=== PATIENT | female | born 1945 | race Caucasian/White ===

== ENCOUNTER → 2018-10-19 06:42 | Day surgery (SDC) | payer MEDICARE, BC ==
[~2018-10-19 06:42] MED LIST: Atenolol TAB* 25 MG ONE; Buffered Lidocaine 1% SYRIN* 1 ML/SYRINGE INTRADERM ONE; Lactated Ringers 1000 ML Bag* 1,000 ML IV SCH; Lidocaine 2% PF * 5 ML VIAL ONE; Naloxone* 0.4 MG/ML 1 ML VIAL IV PRN; Propofol* 10 MG/ML 20 ML BTL ONE; Sodium Citrate/Citric Acid* 15 ML UDC ONE; Sodium Citrate/Citric Acid* 15 ML UDC PO ONE; fentaNYL* 50 MCG/ML 2 ML VIAL (100 MCG VIAL) ONE
[2018-10-19 09:24] VITALS: BP 129/69
--- NOTE | 2018-10-19 13:06 | TEE ---
*[facility]* [place] [address] Fax #: [phone] Transthoracic Echocardiogram Patient: Cara Javed Height: 65 in / A 165.1 cm : 1945 Weight: 217.5 lb / Study Date: 10/19/2018 98.9 kg Age: 73 BP: 135 / 60 Gender: F BMI/BSA: 36.3 kg/m^2 HR: 69 bpm / 2.05 m^2 *Racing Car Driver: * Bessie Velazquez [facility] *Referring Physician: * Julio Valdez *Reading Physician: Julio Srivastava MD Indications: Unspecified atrial fibrillation (I48.91). History: Risk factors: Hypertension. Diabetes mellitus. Obese. Dyslipidemia. Conclusions Summary: 1. Left ventricle: Left ventricular geometry shows evidence of concentric hypertrophy. Systolic function is normal. The estimated ejection fraction is 55-60%, by visual assessment. 2. Right ventricle: The cavity size is mildly dilated. 3. Left atrium: The atrium is mildly dilated. The appendage is not well visualized. Emptying velocity is mildly reduced. Cannot exclude a thrombus in the appendage. There is spontaneous echo contrast ("smoke"). 4. Right atrium: The atrium is mildly dilated. 5. Atrial septum: No defect or patent foramen ovale is identified. 6. Mitral valve: There is mild regurgitation, with multiple jets. 7. Aortic valve: The findings are consistent with moderate stenosis. 8. Tricuspid valve: There is mild-moderate regurgitation. 9. Aorta: There is plaque visualized in the Descending Aorta. The aorta is mildly calcified. Study data: Transthoracic echocardiogram. Consent: The risks and benefits of the procedure, including alternatives were discussed with the patient and/or their health care novelties sales representative and written informed consent was obtained. Procedure: Initial setup: The patient was brought to the laboratory in the fasting state.Intravenous access was obtained. Surface ECG leads, heart rate , heart rhythm , blood pressure measurements, pulse oximetric signals, and mainstream end-tidal CO2 tracings were monitored throughout the procedure. History and physical as well as labs were reviewed. An oral bite block was inserted for protection of oral dentition. The patient was placed in the left lateral decubitus position.. Topical anesthesia was obtained using viscous lidocaine. A transesophageal probe was inserted by the attending lace finisher. Transesophageal echocardiography was performedImage quality was adequate. , all standard views were attempted within the limitations of patient tolerance and safety. Multiple 2D, color flow Doppler and spectral Doppler images were obtained. The transesophageal probe was removed. A bubble study was performed. Images 29 and 30. Complete 2D, spectral Doppler, and color flow Doppler. Location: Procedure room. Patient status: Outpatient. Patient room number: OR-2. Study completion: The patient tolerated the procedure well. There were no complications. Administered medications: Propofol. Was administered by anesthesiolgist Dr.Stephen Krishna MURGUIA. Rhythm: Normal sinus rhythm. Findings Left ventricle: The cavity size is normal. Left ventricular geometry shows evidence of concentric hypertrophy. Systolic function is normal. The estimated ejection fraction is 55-60%, by visual assessment. Right ventricle: The cavity size is mildly dilated. Systolic function is normal. Left atrium: The atrium is mildly dilated. The appendage is not well visualized. Emptying velocity is mildly reduced. Cannot exclude a thrombus in the appendage. There is spontaneous echo contrast ("smoke"). Right atrium: The atrium is mildly dilated. Atrial septum: No defect or patent foramen ovale is identified. Mitral valve: The leaflets are mildly thickened. There is no evidence of stenosis. There is mild regurgitation, with multiple jets. The peak diastolic gradient is 3.9 mm Hg. Aortic valve: The leaflets are mildly calcified. The findings are consistent with moderate stenosis. There is physiologic regurgitation. The valve area by the velocity-time integral method is 0.79 cm^2. The ratio of LVOT to aortic valve peak velocity is 0.32. The valve area by the peak velocity method is 0.89 cm^2. The ratio of LVOT to aortic valve mean velocity is 0.27. The valve area by the mean velocity method is 0.8 cm^2. The valve area index by the mean velocity method is 0.37 cm^2/m^2. The mean systolic gradient is 22.0 mm Hg. The peak systolic gradient is 37.0 mm Hg. Tricuspid valve: There is no evidence of stenosis. There is mild-moderate regurgitation. Pulmonic valve: There is no evidence of stenosis. There is trivial regurgitation. Aorta: There is plaque visualized in the Descending Aorta. The aorta is mildly calcified. Aortic arch: The aortic arch is appears normal. The aortic root is not dilated. The ascending aorta is normal. Pericardium: A prominent pericardial fat pad is present. There is no significant pericardial effusion. Pulmonary arteries: The main pulmonary artery is normal-sized. Systolic pressure is mildly increased, estimated to be 37 mm Hg. Systemic veins: Inferior vena cava: The vessel is normal in size. Superior vena cava: The vessel is appears normal. Pulmonary veins: Visualization of the pulmonary venous anatomy is incomplete, but a significant abnormality is unlikely. The Pulmonary veins appear normal. Measurements LVOT Value Ref Mitral valve Value Ref Diam, S 1.90 cm ---- Peak E 0.99 m/sec ----- Area 2.8 cm^2 ---- Peak A 0.61 m/sec ----- Peak mehreen, S 0.96 m/sec ---- Decel time 204 ms ----- Mean mehreen, S 0.58 m/sec ---- Peak grad, D 3.9 mm Hg ----- Mean grad, S 2 mm Hg ---- Peak E/A ratio 1.6 ----- SV 62 ml ---- SV/bsa 30 ml/m^2 ---- Tricuspid valve Value Ref TR peak v 2.67 m/sec <=2.8 Aortic valve Value Ref Peak RV-RA grad, S 29 mm Hg ----- Jania diam, ED 1.8 cm ---- Peak v, S 3.05 m/sec ---- Aortic root Value Ref Mean v, S 2.16 m/sec ---- Root diam 2.9 cm <4.2 VTI, S 80.4 cm ---- Mean grad, S 22.0 mm Hg ---- Ascending aorta Value Ref Peak grad, S 37.0 mm Hg ---- AAo AP diam, S 2.6 cm ----- YESSI, VTI 0.79 cm^2 ---- LVOT/AV, Vpeak ratio 0.32 ---- YESSI, Vmax 0.89 cm^2 ---- Legend: (L) and (H) fermin values outside specified reference range. Prepared and electronically signed by Julio Valdez MD 10/19/2018 13:04
== END | disposition home or self-care (01) ==
LOC: OR 06:42
PROVIDERS: ATTEND Internal Medicine Cardiovascular Disease
DX: I48.91 Unspecified atrial fibrillation (principal); I08.1 Rheumatic disorders of both mitral and tricuspid valves; I10 Essential (primary) hypertension; E78.5 Hyperlipidemia, unspecified; E03.9 Hypothyroidism, unspecified; Z68.35 Body mass index [BMI] 35.0-35.9, adult; Z87.891 Personal history of nicotine dependence; Z86.73 Personal history of transient ischemic attack (TIA), and cerebral infarction without residual deficits; Z79.01 Long term (current) use of anticoagulants
CPT/HCPCS: 93312; 93325; A9270-GY; J2704; J3010